=== PATIENT | female | born 1995 | race Caucasian/White ===

== ENCOUNTER → 2018-01-14 | Outpatient (CLI) | payer BC ==
[~2018-01-14] MED LIST: NIF10C GT; NIFE10CA3 PO; PREN-96 PO
[2018-01-14 07:58] LABS: Basophils # (auto) 0.1 uL; Basophils % (auto) 0.4 % (0.0-2.0); Eosinophils # (auto) 0.4 uL; Eosinophils % (auto) 3.1 % (0.0-7.0); Hematocrit 36.8 % (36.0-46.0); Hemoglobin 12.2 g/dL (12.2-16.2); Lymphocytes # (auto) 3.3 uL; Mean Corpuscular Hemoglobin 31.3 pg (28.0-32.0); Mean Corpuscular Hgb Conc. 33.2 g/dL (32.0-36.0); Mean Corpuscular Volume 94.3 fL (80.0-100.0); Monocytes # (auto) 0.9 uL; Monocytes % (auto) 7.2 % (0.0-12.0); Neutrophils # (auto) 7.6 uL; Neutrophils % (auto) 62.3 % (37.0-80.0); Platelet Count (auto) 243 10^3/uL (140-450); White Blood Cell 12.3 10^3/uL (4.4-10.8)
== END | disposition home or self-care (01) ==
LOC: LAB 07:40
PROVIDERS: ATTEND Specialist
DX: O99.810 Abnormal glucose complicating pregnancy (principal); Z3A.27 27 weeks gestation of pregnancy
CPT/HCPCS: 36415; 82951; 85025

== ENCOUNTER 2018-02-07 15:03 | Observation (INO) | payer BC | END 2018-02-07 17:10 | disposition home or self-care (01) | DRG 833 | LOC: LDRP 15:03 | PROVIDERS: ADMIT Obstetrics & Gynecology; ATTEND Obstetrics & Gynecology | DX: O26.853 Spotting complicating pregnancy, third trimester (principal); O60.03 Preterm labor without delivery, third trimester; Z3A.30 30 weeks gestation of pregnancy | CPT/HCPCS: 59025; 76815; 76817; 81002; G0378 ==

== ENCOUNTER 2018-02-09 08:20 | Observation (INO) | payer BC ==
[~2018-02-09] VITALS: Ht 154.9 cm; Wt 67.6 kg
[2018-02-09] MEDS ORDERED: BETAMETHASONE ACET (6MG/ML) 5ML VIAL ONE (09:00)
[2018-02-09] MEDS ORDERED: BETAMETHASONE ACET (6MG/ML) 5ML VIAL IM ONE (09:00)
[2018-02-09] MEDS ORDERED: LACTATED RINGER'S 1,000 ML IV ONE (09:00)
[2018-02-09] MEDS ORDERED: PREN-96 PO (09:01)
[2018-02-09] MEDS ORDERED: NIF10C GT (09:01)
[2018-02-09] MEDS ORDERED: NIFE10CA3 PO (09:03)
[2018-02-09] MEDS ORDERED: MAGNESIUM SULFATE 40MG/ML 1,000 ML IV SCH (09:30)
[2018-02-09] MEDS ORDERED: MAGNESIUM SULFATE 100 ML IV ONE ×2 (09:30→09:45)
[2018-02-09] MEDS: TERBUTALINE SULFATE 1 MG/ML 1ML VIAL SC SCH ×2 (09:30→09:50)
[2018-02-09] MEDS ORDERED: TERBUTALINE SULFATE 1 MG/ML 1ML VIAL SC ONE (09:34)
[2018-02-09] MEDS ORDERED: SODIUM CHLORIDE 0.9% 1,000 ML IV SCH (09:42)
[2018-02-09] MEDS: AMPICILLIN SOD 2GM INJ 2 GM in SODIUM CHL 0.9% 100 ML IV ONE ×2 (09:58→10:15)
[2018-02-09] MEDS ORDERED: BETAMETHASONE ACET (6MG/ML) 5ML VIAL IM SCH (10:00)
[2018-02-09] MEDS ORDERED: LACTATED RINGER'S 1,000 ML IV SCH (10:00)
[2018-02-09 10:10] LABS: Alcohol, Urine < 3.0 mg/dL (0-5); Amphetamine Screen, Urine NEGATIVE (NEGATIVE); Barbiturate Scree,Urine NEGATIVE (NEGATIVE); Benzodiazephine Screen, Urine NEGATIVE (NEGATIVE); Cannabinoid Screen, Urine NEGATIVE (NEGATIVE); Cocaine Screen, Urine NEGATIVE (NEGATIVE); Opiate Scree,Urine NEGATIVE (NEGATIVE); Phencyclidine Screen, Urine NEGATIVE (NEGATIVE)
[2018-02-09 10:15] LABS: Urine Bacteria FEW /hpf (None Seen); Urine Blood 3+ /uL (Negative); Urine Mucus FEW (None Seen); Urine Specific Gravity 1.019 (1.001-1.035); Urine WBC 109 /hpf (0 - 5)
[2018-02-09] MEDS ORDERED: NALBUPHINE HCL 10 MG/1ml INJECTION ONE (10:34)
[2018-02-09 10:42] LABS: Basophils # (auto) 0 uL; Basophils % (auto) 0.2 % (0.0-2.0); Eosinophils # (auto) 0 uL; Eosinophils % (auto) 0.1 % (0.0-7.0); Hematocrit 38.1 % (36.0-46.0); Hemoglobin 12.5 g/dL (12.2-16.2); Lymphocytes # (auto) 1.5 uL; Lymphocytes % (auto) 7.9 % (10.0-50.0); Mean Corpuscular Hemoglobin 30.3 pg (28.0-32.0); Mean Corpuscular Hgb Conc. 32.8 g/dL (32.0-36.0); Mean Corpuscular Volume 92.5 fL (80.0-100.0); Monocytes # (auto) 0.6 uL; Monocytes % (auto) 3.4 % (0.0-12.0); Neutrophils # (auto) 16.8 uL; Neutrophils % (auto) 88.4 % (37.0-80.0); Platelet Count (auto) 223 10^3/uL (140-450); Red Blood Cells 4.12 10^6/uL (4.0-5.20)
[2018-02-09] MEDS ORDERED: NALBUPHINE HCL 10 MG/1ml INJECTION IV PRN (10:45)
[2018-02-09 10:50] LABS: INR 0.86 (0.9-1.15); Partial Thromboplastin Time 26.5 sec (23.78-33.04); Prothrombin Time 9.3 sec (9.27-12.13)
[2018-02-09 10:54] LABS: Albumin 2.6 g/dL (3.4-5.0); Calcium 8.2 mg/dL (8.5-10.1); Potassium 3.4 mmol/L (3.5-5.1)
[2018-02-09 10:56] LABS: BUN/Creatinine Ratio 9.6
[2018-02-09 10:58] LABS: Bilirubin, Total 0.3 mg/dL (0.2-1.0); Total Protein 7.9 g/dL (6.4-8.2)
--- NOTE | 2018-02-09 16:35 | NUR ---
Call placed to Xray dept regarding US imaging report showing DEIDRA 0.5 looks to be in error; Tech states that images show 8.5 DEIDRA and he will call radiologist to obtain addendum to the report.
[2018-02-11 08:10] LABS: RPR Non Reactive (Non Reactive)
== END 2018-02-09 11:15 | disposition short-term general hospital (02) | DRG 833 ==
LOC: LDRP 08:20
PROVIDERS: ADMIT Obstetrics & Gynecology; ATTEND Obstetrics & Gynecology
DX: O26.853 Spotting complicating pregnancy, third trimester (principal); O60.03 Preterm labor without delivery, third trimester; Z3A.30 30 weeks gestation of pregnancy
CPT/HCPCS: 36415; 51702; 59025; 76805; 76815; 80053; 80307; 81001; 81002; 83735; 85025; 85610; 85730; 86592; 86850; 86900; 86901; 94760; 96365; 96372; 96375; G0378; J0290; J0702; J2300; J3475; J7030; 96361; 96366; 96374